=== PATIENT | female | born 2000 | race Caucasian/White ===

== ENCOUNTER 2023-07-07 20:02 | Emergency (ER) | payer OTHER ==
[~2023-07-07] VITALS: Ht 165.1 cm; Wt 70.3 kg
[2023-07-07 20:52] VITALS: BP 111/37; PULSE 89; RESP 16; TEMP 97.4; O2SAT 100
[2023-07-07] MEDS ORDERED: IBUPROFEN 600 MG TAB PO ONE (22:35)
== END 2023-07-07 23:25 | disposition left against medical advice (07) ==
LOC: MED 20:02
DX: M54.50 Low back pain, unspecified (principal); Z53.21 Procedure and treatment not carried out due to patient leaving prior to being seen by health care provider
CPT/HCPCS: 99281